=== PATIENT | male | born 1945 | race Caucasian/White ===

== ENCOUNTER → 2016-06-04 | Outpatient (CLI) | payer MEDICARE ==
[~2016-06-04] MED LIST: AMARYL2 MG PO; ASA CHILDREN'S81 MG PO; ASCORBIC ACID500 MG PO; ASPIRIN81 MG PO; CORDARONE DPS200 MG PO; DEBROX OTIC15 ML AU; EFFEXOR DPS75 MG PO; FEOSOL-DPS325 MG PO; FERREX 150150 MG PO; FLOMAX DPS0.4 MG PO; FLONASE 0.05% D16 GM NS; GLUCOPHAGE-DPS500 MG PO; GLUCOTROL DPS10 MG PO; HYDROCODON-ACE1 EAC4 PO; LASIX DPS40 MG PO; LASIX20 MG PO; LEVEMIR100 UNIT/1 SQ; METOPROLOL TART25 MG PO; MICRO-K DPS10 MEQ PO; MIRTAZAPINE7.5 MG PO; MONTELUKAST SOD10 MG PO; MULTIVITAMINS1 EAC1 PO; MULTIVITAMINS1 EAC8 PO; NOVOLOG FL100 UNIT/1 SQ; NOVOLOG MI100 UNITS/ SQ; PREDNISONE1 MG PO; PROSCAR5 MG PO; REMERON DPS30 MG PO; SIMVASTATIN20 MG PO; SYNTHROID DPS0.05 MG PO; VITAMIN D1000 UNI1 PO; XARELTO15 MG PO; XARELTO20 MG PO; ZITHROMAX250 MG PO; ZOCOR DPS40 MG PO
== END | disposition home or self-care (01) ==
LOC: RESC 08:56
DX: R06.00 Dyspnea, unspecified (principal); J92.9 Pleural plaque without asbestos; R91.1 Solitary pulmonary nodule

== ENCOUNTER → 2016-08-12 | Outpatient (CLI) | payer MEDICARE ==
--- NOTE | 2016-08-24 11:02 | SS ---
ADMIT: 08/12/2016 RM/LOC: [facility] MR#: [id number] [id number] [place], [place] [address] [address] [place] [address] Sleep Study SEX: M AGE: 71 : 1945 STUDY DATE: 08/12/2016 REFERRING PHYSICIAN: SHADI Sanders CLINICAL HISTORY: A 71-year-old male, body mass 18.4, 68 inches, 121 pounds with symptoms of poor sleep, daytime fatigue, in the sleep lab for evaluation of obstructive sleep apnea. TECHNICAL DESCRIPTION: Split night polysomnogram performed on night of 08/12/2016, attended by a trained interventional radiology technologist. DIAGNOSTIC POLYSOMNOGRAM FINDINGS: SLEEP: Total time in bed is 134.5 minutes, total sleep time 85.5 minutes, sleep efficiency 63.6%. 71.2% hours spent in stage II sleep. No REM sleep was seen. BREATHING: Severe obstructive sleep apnea with apnea-hypopnea index of 32.3. During the study, there was 1 obstructive apnea and 45 obstructive hypopneas noted. OXYGEN SATURATION: Mean sleeping 91%. Lowest oxygen 82%. 20.5% time was spent saturating 80% to 89%. CARDIAC: Average heart rate 76 beats per minute. MOVEMENTS/POSITION: During the study, the patient slept in supine lateral position with severe periodic leg movement of sleep with a periodic leg movement index of 68.1. CPAP TITRATION FINDINGS: TITRATION DESCRIPTION: The patient was titrated from 5 cm of CPAP to 7 cm of CPAP. Shaffer LT nasal pillows were used as interface. SLEEP: Total time bed is 238 minutes, total sleep time 158.5 minutes, sleep efficiency 66.6%. 72.9% hours spent in stage II sleep, 8.1% hours spent in stage REM. BREATHING: Excellent resolution of obstructive sleep apnea was seen on CPAP of 7 cm. The patient was seen in REM sleep in supine position. OXYGEN SATURATION: Mean sleeping on 92%. ADMIT: 08/12/2016 RM/LOC: [facility] MR#: [id number] [address] [address] [address] [place] [address] Sleep Study SEX: M AGE: 71 : 1945 CARDIAC: Average heart rate 69 beats per minute. MOVEMENTS/POSITION: During the study, the patient slept in the supine lateral position with a periodic leg movement index of 44.7. IMPRESSION/PLAN: Severe obstructive sleep apnea. Predominantly positional with apnea-hypopnea index of 32.3. Recommend using CPAP at 7 cm mask as mentioned above. Recommend losing weight, avoiding sedatives and alcohol. Refrain from driving if excessively sleepy. Clinical correlation needed. CPAP compliance followup is recommended. Travis Chow MD/ cheri JOB #: [id number] CC: Julio Ceasr Ochoa MD, Attending Physician Ha Kimbrough MD, Family Physician Julio Cesar Ochoa MD
== END | disposition home or self-care (01) ==
LOC: RESC 20:23
DX: G47.33 Obstructive sleep apnea (adult) (pediatric) (principal)